=== PATIENT | male | born 1990 | race Caucasian/White ===

== ENCOUNTER 2018-07-23 12:58 | Emergency (ER) | payer SELFPAY ==
[~2018-07-23] VITALS: Ht 167.6 cm; Wt 71.2 kg
[2018-07-23 13:04] VITALS: TEMP 99.2
[2018-07-23] MEDS ORDERED: MEDROL 4MG DOSPA4 MG PO (15:29)
[2018-07-23] MEDS ORDERED: ZANTAC 150MG T150 MG PO (15:29)
[2018-07-23 15:58] VITALS: BP 126/75; PULSE 68
[2018-07-23] MEDS ORDERED: FLEXERIL 1010 MG/TAB PO (17:56)
== END 2018-07-23 16:00 | disposition home or self-care (01) ==
LOC: COL.ER 12:58
DX: S39.012A Strain of muscle, fascia and tendon of lower back, initial encounter (principal); M54.42 Lumbago with sciatica, left side; Z87.891 Personal history of nicotine dependence; X50.0XXA Overexertion from strenuous movement or load, initial encounter

== ENCOUNTER 2020-06-23 09:38 | Emergency (ER) | payer SELFPAY ==
[~2020-06-23] VITALS: Ht 167.6 cm; Wt 75.0 kg
[~2020-06-23 09:38] MED LIST: FLEXERIL 1010 MG/TAB PO; MEDROL 4MG DOSPA4 MG PO; ZANTAC 150MG T150 MG PO
[2020-06-23 09:44] VITALS: TEMP 97.3
[2020-06-23 10:22] LABS: COLLECTION METHOD CLEAN CATCH
[2020-06-23 10:22] LABS: BASO % 0.4 % (0.0-2.0); EOS # 0.2 (0.0-0.7); EOS % 4.4 % (0-4.0); GRAN # 2.4 (1.4-6.5); GRAN % 45.8 % (42.2-75.2); HEMATOCRIT 43.1 % (42.0-52.0); HEMOGLOBIN 15.5 g/dl (13.5-18.0); LYMPH # 2.1 (1.2-3.4); LYMPH % 40.2 % (20.0-51.0); MEAN CELL VOLUME 88 fl (80.0-100.0); MEAN CORPUSCULAR HEMOGLOBIN 32 pg (27.0-31.0); MEAN CORPUSCULAR HGB CONC 36 g/dl (33.0-37.0); MEAN PLATELET VOLUME 10.2 fl (7.4-10.4); MONO # 0.5 (0.1-0.6); PLATELET COUNT 198 K/mm3 (130-400); RED BLOOD COUNT 4.88 M/mm3 (4.20-5.60); REDCELL DISTRIBUTION WIDTH-CV 11.3 % (11.5-14.5)
[2020-06-23 10:31] LABS: ALANINE AMINOTRANSFERASE 22 U/L (4-49); ALBUMIN 4.4 gm/dL (3.5-5.0); ALKALINE PHOSPHATASE 55 U/L (50-136); ANION GAP 7 mmol/L (7-16); AST,SGOT 31 U/L (15-37); BILIRUBIN,TOTAL 1.2 mg/dL (0.0-1.0); BLOOD UREA NITROGEN 13 mg/dL (9-20); C-REACTIVE PROTEIN < 0.5 mg/dL (0.0-0.9); CALCIUM 9.1 mg/dL (8.4-10.2); CARBON DIOXIDE 28 mmol/L (22-30); CHLORIDE 105 mmol/L (98-107); CREATININE, serum 0.98 (0.66-1.25); GLUCOSE 92 mg/dL (74-106); LIPASE 66 U/L (23-300); POTASSIUM 3.9 mmol/L (3.4-5.0); SODIUM 140 mmol/L (137-145)
[2020-06-23 10:51] LABS: AMORPHOUS CRYSTAL Present /uL; MUCOUS Present /lpf; PH 7 (5-8); SQUAMOUS EPITHELIAL None Seen /hpf; URINE APPEARANCE Cloudy; URINE BACTERIA Rare /hpf; URINE BILIRUBIN Negative (NEGATIVE); URINE BLOOD Negative (NEGATIVE); URINE COLOR Yellow; URINE GLUCOSE Negative (NEGATIVE); URINE KETONE Negative (NEGATIVE); URINE LEUKOCYTE ESTERASE Negative (NEGATIVE); URINE NITRATE Negative (NEGATIVE); URINE PROTEIN(semi-quant) Negative (NEGATIVE); URINE RBC 0-2 /hpf; URINE UROBILINOGEN Negative (NEGATIVE)
[2020-06-23] MEDS ORDERED: PROTONIX 40MG T40 MG PO (11:29)
[2020-06-23 11:55] VITALS: BP 116/70; PULSE 60
== END 2020-06-23 11:55 | disposition home or self-care (01) ==
LOC: COL.ER 09:38
PROVIDERS: Physician Assistant
DX: R10.13 Epigastric pain (principal)
CPT/HCPCS: J2405; J7030; Q9967

== ENCOUNTER 2020-06-30 09:49 | Emergency (ER) | payer SELFPAY ==
[~2020-06-30] VITALS: Ht 161 cm; Wt 74.5 kg
[~2020-06-30 09:49] MED LIST changes: +PROTONIX 40MG T40 MG PO
[2020-06-30 09:53] VITALS: TEMP 97.9
[2020-06-30 10:28] LABS: COLLECTION METHOD CLEAN CATCH
[2020-06-30 10:39] LABS: BASO % 0.4 % (0.0-2.0); EOS # 0.2 (0.0-0.7); GRAN # 2.8 (1.4-6.5); GRAN % 53.7 % (42.2-75.2); HEMATOCRIT 44.4 % (42.0-52.0); LYMPH # 1.8 (1.2-3.4); LYMPH % 33.7 % (20.0-51.0); MEAN CELL VOLUME 88 fl (80.0-100.0); MEAN CORPUSCULAR HEMOGLOBIN 32 pg (27.0-31.0); MEAN CORPUSCULAR HGB CONC 36 g/dl (33.0-37.0); MEAN PLATELET VOLUME 10.2 fl (7.4-10.4); MONO # 0.4 (0.1-0.6); PLATELET COUNT 213 K/mm3 (130-400); RED BLOOD COUNT 5.02 M/mm3 (4.20-5.60); REDCELL DISTRIBUTION WIDTH-CV 11.3 % (11.5-14.5)
[2020-06-30 10:40] LABS: MUCOUS Present /lpf; PH 5 (5-8); SQUAMOUS EPITHELIAL None Seen /hpf; URINE APPEARANCE Clear; URINE BACTERIA None Seen /hpf; URINE BILIRUBIN Negative (NEGATIVE); URINE BLOOD Negative (NEGATIVE); URINE COLOR Yellow; URINE GLUCOSE Negative (NEGATIVE); URINE KETONE Negative (NEGATIVE); URINE LEUKOCYTE ESTERASE Negative (NEGATIVE); URINE NITRATE Negative (NEGATIVE); URINE PROTEIN(semi-quant) Negative (NEGATIVE); URINE RBC 0-2 /hpf; URINE UROBILINOGEN Negative (NEGATIVE)
[2020-06-30 10:51] LABS: ALANINE AMINOTRANSFERASE 22 U/L (4-49); ALBUMIN 4.5 gm/dL (3.5-5.0); ALKALINE PHOSPHATASE 58 U/L (50-136); ANION GAP 9 mmol/L (7-16); AST,SGOT 26 U/L (15-37); BILIRUBIN,TOTAL 1.1 mg/dL (0.0-1.0); BLOOD UREA NITROGEN 15 mg/dL (9-20); CARBON DIOXIDE 26 mmol/L (22-30); CHLORIDE 105 mmol/L (98-107); CREATININE, serum 0.87 (0.66-1.25); GLUCOSE 84 mg/dL (74-106); LIPASE 95 U/L (23-300); POTASSIUM 3.9 mmol/L (3.4-5.0); SODIUM 139 mmol/L (137-145); TOTAL PROTEIN 7.2 gm/dL (6.4-8.2)
[2020-06-30 10:59] LABS: C-REACTIVE PROTEIN < 0.5 mg/dL (0.0-0.9)
[2020-06-30] MEDS ORDERED: NORCO 325 MG-51 TAB PO (13:51)
[2020-06-30 14:04] VITALS: BP 109/68; PULSE 54
== END 2020-06-30 14:15 | disposition home or self-care (01) ==
LOC: COL.ER 09:49
PROVIDERS: Family Medicine
DX: R10.9 Unspecified abdominal pain (principal); Z87.891 Personal history of nicotine dependence
CPT/HCPCS: J2405; J7120

== ENCOUNTER 2020-09-07 10:33 | Emergency (ER) | payer SELFPAY ==
[~2020-09-07] VITALS: Ht 172.7 cm; Wt 72.7 kg
[~2020-09-07 10:33] MED LIST changes: +NORCO 325 MG-51 TAB PO
[2020-09-07 10:42] VITALS: TEMP 98.5
[2020-09-07 11:50] LABS: BASO % 0.6 % (0.0-2.0); EOS # 0.3 (0.0-0.7); GRAN # 3.7 (1.4-6.5); GRAN % 53.9 % (42.2-75.2); HEMATOCRIT 46.9 % (42.0-52.0); HEMOGLOBIN 16.6 g/dl (13.5-18.0); LYMPH # 2.2 (1.2-3.4); LYMPH % 31.7 % (20.0-51.0); MEAN CELL VOLUME 89 fl (80.0-100.0); MEAN CORPUSCULAR HEMOGLOBIN 31 pg (27.0-31.0); MEAN CORPUSCULAR HGB CONC 35 g/dl (33.0-37.0); MEAN PLATELET VOLUME 10.2 fl (7.4-10.4); MONO # 0.6 (0.1-0.6); MONO % 8.5 % (1.7-9.3); PLATELET COUNT 218 K/mm3 (130-400); REDCELL DISTRIBUTION WIDTH-CV 11.5 % (11.5-14.5)
[2020-09-07 11:57] LABS: ALBUMIN 4.4 gm/dL (3.5-5.0); BILIRUBIN,TOTAL 0.8 mg/dL (0.0-1.0); CALCIUM 9.7 mg/dL (8.4-10.2); CREATININE, serum 0.9 (0.66-1.25); POTASSIUM 4.1 mmol/L (3.4-5.0); TOTAL PROTEIN 7.4 gm/dL (6.4-8.2)
[2020-09-07] MEDS ORDERED: PEPCID 20MG TAB20 MG PO (13:31)
[2020-09-07] MEDS ORDERED: NORCO 325 MG-51 TAB PO ×3 (13:31→13:33)
[2020-09-07] MEDS ORDERED: PROTONIX 40MG T40 MG PO (13:31)
[2020-09-07 14:22] VITALS: BP 131/80; PULSE 78
== END 2020-09-07 14:22 | disposition home or self-care (01) ==
LOC: COL.ER 10:33
PROVIDERS: Nurse Practitioner Primary Care
DX: K29.70 Gastritis, unspecified, without bleeding (principal); Z20.828 Contact with and (suspected) exposure to other viral communicable diseases
CPT/HCPCS: C9113

== ENCOUNTER 2020-09-09 10:33 | Day surgery (SDC) | payer SELFPAY ==
[~2020-09-09] VITALS: Ht 167.6 cm; Wt 75.3 kg
[~2020-09-09 10:33] MED LIST changes: +PEPCID 20MG TAB20 MG PO
[2020-09-09 11:40] VITALS: BP 122/68; PULSE 80; TEMP 98.2
--- NOTE | 2020-09-09 11:44 | NUR ---
Patient arrives to [facility] independently with steady gait. He does not speak any serbian. The business partner service is used on speaker phone to obtain health history and admission information. The business partner service is used to obtain consent for the procedure. Breath sounds are clear bilaterally to auscultation. Clear S1S2 heart tones are heard with regular rate noted. PIV is started in his right AC #20 gauge with x1 attempt. He denies any questions prior to signing off from the business partner service line.
[2020-09-09 13:08] VITALS: BP 113/72; PULSE 64; TEMP 97.8
--- NOTE | 2020-09-09 13:08 | NUR ---
Pt returns from Endo procedure to [place] [facility] via cart. Pt ambulates from cart to recliner with RN assist. Endo nurse has hospital-appointed thermo processor on the phone at arrival, and all conversation and instructions are being relayed through the thermo processor. Monitors on and alarms set. Call light within reach. While thermo processor is on speaker phone, Dr. Kenny visits with pt about procedure results and also relays this to the pt's family member who is joining by another phone on speaker phone. Pt and family member voice satisfaction of information from Dr. Kenny. Pt requests water and crackers. Report received from MARISSA Simon.
[2020-09-09 13:15] VITALS: BP 114/78; PULSE 66
--- NOTE | 2020-09-09 13:25 | NUR ---
Pt taking food and drink well. No complications noted or voiced.
[2020-09-09 13:30] VITALS: BP 108/70; PULSE 66
--- NOTE | 2020-09-09 13:40 | NUR ---
Discharge instructions given to pt with assistance from hospital-appointed conference interpreter on speaker phone. Handed to pt are a ismael card, discharge instructions, diagnosis information, and procedural photos. Pt communicates clarifying questions to this RN through the conference interpreter. All questions then answered to pt's satisfaction.
[2020-09-09 13:45] VITALS: BP 112/74; PULSE 64
--- NOTE | 2020-09-09 13:50 | NUR ---
Pt transferred out of the hospital via wheelchair and this RN. Pt's ride is not here yet. This RN waits with pt in [facility].
--- NOTE | 2020-09-09 14:20 | NUR ---
Pt's ride arrives. Pt transferred to friend's car with friend driving.
== END 2020-09-09 14:20 | disposition home or self-care (01) ==
LOC: SDCO 10:33
DX: K29.30 Chronic superficial gastritis without bleeding (principal); K21.9 Gastro-esophageal reflux disease without esophagitis
CPT/HCPCS: J2704; J7030